=== PATIENT | female | born 1990 | race Caucasian/White ===

== ENCOUNTER 2018-10-03 23:46 | Inpatient (IN) ==
[2018-10-04] MEDS ORDERED: ONDANSETRON 4 MG/2 ML VIAL IV PRN ×2 (00:17→15:43)
[2018-10-04 00:26] LABS: Basophils % 0.3 % (0.0-0.8); Eosinophils # 0.1 10*3/uL (0.0-0.87); Eosinophils % 0.9 % (0.00-10.9); Hematocrit 40.6 VOL% (35.7-47.0); Hemoglobin 13.2 GM/DL (12.0-16.0); Immature Granulocytes % 0.5 %; Immature Granulocytes Absolute 0.04 #; Lymphocytes # 1.6 10*3/uL (1.4-4.0); Lymphocytes % 21.2 % (21.3-54.2); Mean Corpuscular HGB Conc 32.5 GM/DL (32-36); Mean Corpuscular Hemoglobin 30 PG (27-34); Mean Platelet Volume 11.4 FL (9.6-12.0); Monocytes # 0.8 10*3/uL (0.11-0.8); Monocytes % 9.9 % (1.7-12.7); Neutrophils # 5.2 10*3/uL (1.4-7.4); Neutrophils % 67.2 % (38.7-73.9); Platelet Count 203 T/CUMM (130-400); Red Blood Count 4.46 MC/CUMM (3.8-5.5); White Blood Count 7.8 T/CUMM (4-12)
[2018-10-04] MEDS ORDERED: BUTORPHANOL 2 MG/ML VIAL IV PRN (00:41)
[2018-10-04] MEDS ORDERED: INFLUENZA VIRUS VACCINE 0.5 ML SYRINGE IM ONE (00:57)
[2018-10-04] MEDS: LACTATED RINGERS 1,000 ML IV SCH (04:03)
[2018-10-04] MEDS: OXYTOCIN/LR 20 UNIT/1,000 ML BAG IV SCH (04:04)
[2018-10-04] MEDS ORDERED: PROMETHAZINE 25 MG/1 ML VIAL IM ONE (06:55)
[2018-10-04] MEDS ORDERED: ONDANSETRON 4 MG/2 ML VIAL IV ONE (06:55)
[2018-10-04] MEDS ORDERED: ePHEDrine 50 MG/ML AMP IV PRN (06:55)
[2018-10-04] MEDS ORDERED: FAMOTIDINE 20 MG/2 ML VIAL IV ONE (06:55)
[2018-10-04] MEDS ORDERED: NALOXONE 0.4 MG/ML VIAL IV PRN (06:55)
[2018-10-04] MEDS ORDERED: hydrOXYzine HCL 25 MG/1 ML VIAL IM PRN (06:55)
[2018-10-04] MEDS ORDERED: LACTATED RINGERS 1,000 ML IV ONE (06:55)
[2018-10-04] MEDS ORDERED: diphenhydrAMINE 50 MG/1 ML VIAL IV PRN ×2 (06:55)
[2018-10-04] MEDS ORDERED: CITRIC ACID/SODIUM CITRATE 30 ML UDCUP PO ONE (06:55)
[2018-10-04] MEDS: fentaNYL 2 MCG/ROPIV 0.2% EPID 100 ML EPIDURAL SCH (07:44)
[2018-10-04 08:44] LABS: Apearance,Urine CLEAR (Clear); Bilirubin,Urine Negative (Negative); Blood, Urine Negative (Negative); Glucose,Urine (UA) Negative (Negative); Ketones,Urine 20 mg/dL (Negative); Mucus,Urine Moderate /LPF (Occasional); Nitrite,Urine Negative (Negative); Protein,Urine Negative; RBC,Urine 1 /HPF (0-4); Squamous Epithelial Cell,Urine Occasional /HPF (0-10); Urine Color Yellow (Yellow); Urine Specific Gravity 1.019 (1.001-1.035); Urine Urobilinogen < 2.0 EU/DL (0.2-1.0); WBC,Urine 1 /HPF (0-6)
[2018-10-04] MEDS ORDERED: LIDOCAINE 1% 50 ML VIAL ONE (10:55)
[2018-10-04] MEDS ORDERED: MEPERIDINE 50 MG/1 ML VIAL ONE (10:55)
[2018-10-04] MEDS ORDERED: miSOPROStol 200 MCG TABLET ONE (10:56)
[2018-10-04] MEDS ORDERED: METHYLERGONOVINE 0.2 MG/1 ML AMP ONE (10:56)
[2018-10-04] MEDS ORDERED: WITCH HAZEL PADS 100/JAR TOP PRN (15:43)
[2018-10-04] MEDS ORDERED: BENZOCAINE 20%/MENTHOL 0.5% SPRAY 56 GM CAN TOP PRN (15:43)
[2018-10-04] MEDS ORDERED: MEASLES/MUMPS/RUBELLA VACCINE 0.5 ML VIAL SUBCUT ONE (15:43)
[2018-10-04] MEDS ORDERED: HYDROCORTISONE 2.5% RECTAL CREAM 30 GM TUBE TOP PRN (15:43)
[2018-10-04] MEDS ORDERED: ACETAMINOPHEN 325 MG TABLET PO PRN (15:43)
[2018-10-04] MEDS ORDERED: DIPH/TET/ACEL PERT BOOSTER VACCINE 0.5 ML VIAL IM ONE (15:43)
[2018-10-04] MEDS ORDERED: RHO(D) IMMUNE GLOBULIN 300 MCG SYRINGE IM ONE (15:43)
[2018-10-04] MEDS ORDERED: BISACODYL 10 MG SUPP RECTAL PRN (15:43)
[2018-10-04] MEDS ORDERED: OXYTOCIN/LR 20 UNIT/1,000 ML BAG IV ONE (15:43)
[2018-10-04] MEDS ORDERED: oxyCODONE/ACETAMINOPHEN 5-325 MG TABLET PO PRN ×2 (15:43)
[2018-10-04] MEDS ORDERED: LANOLIN 50% CREAM 0.3 OZ TUBE TOP PRN (15:43)
[2018-10-04] MEDS: IBUPROFEN 800 MG TABLET PO PRN (17:45)
[2018-10-04] MEDS: DOCUSATE SODIUM 100 MG CAPSULE PO SCH (21:26)
[2018-10-05 06:35] LABS: Basophils % 0.3 % (0.0-0.8); Eosinophils # 0.1 10*3/uL (0.0-0.87); Eosinophils % 0.5 % (0.00-10.9); Hematocrit 35.6 VOL% (35.7-47.0); Hemoglobin 11.6 GM/DL (12.0-16.0); Immature Granulocytes % 0.5 %; Immature Granulocytes Absolute 0.05 #; Lymphocytes # 1.9 10*3/uL (1.4-4.0); Lymphocytes % 17.9 % (21.3-54.2); Mean Corpuscular HGB Conc 32.6 GM/DL (32-36); Mean Corpuscular Hemoglobin 29 PG (27-34); Mean Corpuscular Volume 88.6 FL (87-102); Mean Platelet Volume 11.6 FL (9.6-12.0); Monocytes # 0.9 10*3/uL (0.11-0.8); Monocytes % 8.8 % (1.7-12.7); Neutrophils # 7.7 10*3/uL (1.4-7.4); Platelet Count 169 T/CUMM (130-400); Red Blood Count 4.02 MC/CUMM (3.8-5.5); Red Cell Distribution Width 14.1 % (9.3-17.3); White Blood Count 10.7 T/CUMM (4-12)
[2018-10-05] MEDS: DOCUSATE SODIUM 100 MG CAPSULE PO SCH ×2 (10:00→21:34)
[2018-10-05] MEDS: IBUPROFEN 800 MG TABLET PO PRN (12:38)
[2018-10-05] MEDS: LACTATED RINGERS 1,000 ML IV SCH ×2 (18:33→18:34)
[2018-10-05] MEDS: fentaNYL 2 MCG/ROPIV 0.2% EPID 100 ML EPIDURAL SCH ×2 (18:34→18:35)
[2018-10-05] MEDS: OXYTOCIN/LR 20 UNIT/1,000 ML BAG IV SCH (18:36)
[2018-10-06] MEDS: IBUPROFEN 800 MG TABLET PO PRN (05:08)
[2018-10-06 07:55] VITALS: BP 127/75
[2018-10-06] MEDS: DOCUSATE SODIUM 100 MG CAPSULE PO SCH (08:49)
== END 2018-10-06 13:05 | disposition home or self-care (01) | DRG 807 ==
LOC: N.LDOUT 23:46 → N.LD 23:49 → N.OB 10-04 20:30
PROVIDERS: ADMIT Specialist; ATTEND Specialist

== ENCOUNTER 2022-01-20 05:31 | Inpatient (IN) ==
[2022-01-20] MEDS ORDERED: miSOPROStoL 200 MCG TABLET RECTAL PRN (05:43)
[2022-01-20] MEDS ORDERED: OXYTOCIN/LR 20 UNIT/1,000 ML BAG IV ONE ×3 (05:43→15:00)
[2022-01-20] MEDS ORDERED: CARBOPROST TROMETHAMINE 250 MCG/ML AMP IM PRN (05:43)
[2022-01-20] MEDS ORDERED: METHYLERGONOVINE 0.2 MG/1 ML AMP IM PRN (05:43)
[2022-01-20] MEDS ORDERED: BUTORPHANOL 2 MG/ML VIAL IV PRN (05:43)
[2022-01-20] MEDS ORDERED: LACTATED RINGERS 250 ML IV ONE (05:43)
[2022-01-20] MEDS ORDERED: LACTATED RINGERS 500 ML IV PRN (05:43)
[2022-01-20] MEDS ORDERED: ONDANSETRON 4 MG/2 ML VIAL IV PRN ×2 (05:43→14:51)
[2022-01-20] MEDS ORDERED: MEPERIDINE 50 MG/1 ML VIAL IV PRN (05:43)
[2022-01-20] MEDS ORDERED: TRANEXAMIC ACID 1,000 MG in SODIUM CHLORIDE 0.9% 100 ML IV PRN (05:43)
[2022-01-20] MEDS ORDERED: OXYTOCIN/LR 20 UNIT/1,000 ML BAG IV SCH (06:00)
[2022-01-20] MEDS: LACTATED RINGERS 1,000 ML IV SCH ×3 (06:08→10:40)
[2022-01-20 06:22] LABS: Basophils % 0.4 % (0.0-0.8); Eosinophils # 0.1 10*3/uL (0.0-0.87); Hematocrit 36.3 VOL% (35.7-47.0); Hemoglobin 11.9 GM/DL (12.0-16.0); Immature Granulocytes % 0.6 %; Immature Granulocytes Absolute 0.05 #; Lymphocytes # 1.5 10*3/uL (1.4-4.0); Lymphocytes % 19.1 % (21.3-54.2); Mean Corpuscular HGB Conc 32.8 GM/DL (32-36); Mean Platelet Volume 11.1 FL (9.6-12.0); Monocytes # 0.7 10*3/uL (0.11-0.8); Neutrophils % 69.9 % (38.7-73.9); Platelet Count 219 T/CUMM (130-400); Red Blood Count 4.22 MC/CUMM (3.8-5.5); Red Cell Distribution Width 13.4 % (9.3-17.3); White Blood Count 7.8 T/CUMM (4-12)
[2022-01-20] MEDS ORDERED: ePHEDrine 50 MG/ML VIAL IV PRN (07:52)
[2022-01-20] MEDS ORDERED: FAMOTIDINE 20 MG/2 ML VIAL IV ONE (07:52)
[2022-01-20] MEDS ORDERED: NALOXONE 0.4 MG/ML VIAL IV PRN (07:52)
[2022-01-20] MEDS ORDERED: diphenhydrAMINE 50 MG/1 ML VIAL IV PRN ×2 (07:52)
[2022-01-20] MEDS ORDERED: ONDANSETRON 4 MG/2 ML VIAL IV ONE (07:52)
[2022-01-20] MEDS ORDERED: CITRIC ACID/SODIUM CITRATE 30 ML UDCUP PO ONE (07:52)
[2022-01-20] MEDS ORDERED: PROMETHAZINE 25 MG/1 ML VIAL IM ONE (07:52)
[2022-01-20] MEDS ORDERED: hydrOXYzine HCL 25 MG/1 ML VIAL IM PRN (07:52)
[2022-01-20] MEDS ORDERED: LACTATED RINGERS 1,000 ML IV ONE (07:52)
[2022-01-20] MEDS ORDERED: fentaNYL 2 MCG/ROPIV 0.2% EPID 100 ML EPIDURAL SCH (08:00)
[2022-01-20 10:59] LABS: Mucus,Urine Occasional /LPF (Occasional); RBC,Urine 2 /HPF (0-4); Squamous Epithelial Cell,Urine Occasional /HPF (0-10)
[2022-01-20 11:00] LABS: Bilirubin,Urine Negative (Negative); Blood, Urine Trace mg/dL (Negative); Glucose,Urine (UA) Negative (Negative); Ketones,Urine 15 mg/dL (Negative); Nitrite,Urine Negative (Negative); Protein,Urine Negative (Negative); Urine Appearance Clear (Clear); Urine Color Yellow (Yellow); Urine Specific Gravity 1.025 (1.001-1.035); Urine Urobilinogen 0.2 eU/dL (<2.0); Urine pH 6.5 (4.5-8.0)
[2022-01-20] MEDS ORDERED: SODIUM CHLORIDE 0.9% 0 ML IV ONE (11:10)
[2022-01-20] MEDS ORDERED: TRANEXAMIC ACID 1,000 MG/10 ML VIAL ONE (11:10)
[2022-01-20] MEDS ORDERED: CARBOPROST TROMETHAMINE 250 MCG/ML AMP IM ONE (11:10)
[2022-01-20] MEDS ORDERED: miSOPROStoL 200 MCG TABLET ONE (11:10)
[2022-01-20] MEDS ORDERED: METHYLERGONOVINE 0.2 MG/1 ML AMP ONE (11:10)
[2022-01-20 11:55] LABS: Cord Arterial Blood HCO3 19.3 MMOL/L
[2022-01-20 11:58] LABS: Cord Venous Blood HCO3 19.4 MMOL/L; Cord Venous Blood PCO2 39.1 MMHG; Cord Venous Blood PO2 27.7
[2022-01-20] MEDS ORDERED: HYDROCORTISONE 2.5% RECTAL CREAM 30 GM TUBE TOP PRN (14:51)
[2022-01-20] MEDS ORDERED: ACETAMINOPHEN 325 MG TABLET PO PRN (14:51)
[2022-01-20] MEDS ORDERED: BENZOCAINE 20%/MENTHOL 0.5% SPRAY 56 GM CAN TOP PRN (14:51)
[2022-01-20] MEDS ORDERED: WITCH HAZEL PADS 100/JAR TOP PRN (14:51)
[2022-01-20] MEDS ORDERED: BISACODYL 10 MG SUPP RECTAL PRN (14:51)
[2022-01-20] MEDS ORDERED: oxyCODONE/ACETAMINOPHEN 5-325 MG TABLET PO PRN ×2 (14:51)
[2022-01-20] MEDS ORDERED: IBUPROFEN 800 MG TABLET PO PRN (14:51)
[2022-01-20] MEDS ORDERED: LANOLIN 50% CREAM 0.3 OZ TUBE TOP PRN (14:51)
[2022-01-20] MEDS ORDERED: MEASLES/MUMPS/RUBELLA VACCINE 0.5 ML VIAL SUBCUT ONE (15:30)
[2022-01-20] MEDS ORDERED: RHO(D) IMMUNE GLOBULIN 300 MCG SYRINGE IM ONE (15:30)
[2022-01-20] MEDS ORDERED: DIPH/TET/ACEL PERT BOOSTER VACCINE 0.5 ML VIAL IM ONE (15:30)
[2022-01-20] MEDS: DOCUSATE SODIUM 100 MG CAPSULE PO SCH (21:20)
[2022-01-21 04:32] LABS: Basophils % 0.4 % (0.0-0.8); Eosinophils # 0.2 10*3/uL (0.0-0.87); Eosinophils % 1.7 % (0.00-10.9); Hematocrit 32.1 VOL% (35.7-47.0); Hemoglobin 10.2 GM/DL (12.0-16.0); Immature Granulocytes % 1.2 %; Immature Granulocytes Absolute 0.12 #; Lymphocytes # 2.2 10*3/uL (1.4-4.0); Lymphocytes % 22.2 % (21.3-54.2); Mean Corpuscular HGB Conc 31.8 GM/DL (32-36); Mean Corpuscular Volume 87.7 FL (87-102); Mean Platelet Volume 11.2 FL (9.6-12.0); Monocytes % 9.5 % (1.7-12.7); Platelet Count 193 T/CUMM (130-400); Red Blood Count 3.66 MC/CUMM (3.8-5.5); Red Cell Distribution Width 13.2 % (9.3-17.3); White Blood Count 10.1 T/CUMM (4-12)
[2022-01-21] MEDS: DOCUSATE SODIUM 100 MG CAPSULE PO SCH ×2 (09:12→21:32)
[2022-01-22] MEDS: DOCUSATE SODIUM 100 MG CAPSULE PO SCH (08:51)
[2022-01-22 18:36] VITALS: BP 142/81
== END 2022-01-22 17:30 | disposition home or self-care (01) | DRG 807 ==
LOC: N.LD 05:31 → N.OB 14:50
PROVIDERS: ADMIT Specialist; ATTEND Specialist